=== PATIENT | male | born 1970 ===

== ENCOUNTER 2018-02-25 22:11 | Emergency (ER) | payer OTHER ==
--- NOTE | 2018-02-25 22:40 | EDPHYS ---
Physician Documentation [facility] Name: Surjit Toledo Age: 47 yrs Sex: Male : 1970 Arrival Date: 02/25/2018 Time: 22:15 Bed 15 Private MD: ED Physician Leonidas Zimmerman HPI: 02/25 22:37 This 47 yrs old Unknown Male presents to ER via Ambulatory with complaints of Ear Pain. rn 22:37 The patient presents with pain. The complaints affect the right ear. Onset: The rn symptoms/episode began/occurred today. Associated signs and symptoms: Pertinent positives: sore throat, Pertinent negatives: fever. Severity of symptoms: At their worst the symptoms were mild in the emergency department the symptoms are unchanged. The patient has not experienced similar symptoms in the past. Reports sore throat for 2 days, + right ear pain and pressure, no fever. No trauma.. Historical: - Allergies: 22:27 PENICILLINS; ak1 - Home Meds: 22:27 None [Active]; ak1 - PMHx: 22:27 None; ak1 - PSHx: 22:27 None; ak1 - Immunization history:: Adult Immunizations unknown. - Social history:: Smoking status: Patient/guardian denies using tobacco. - Ebola Screening: : No symptoms or risks identified at this time. - Family history:: not pertinent. - Hospitalizations: : No recent hospitalization is reported. ROS: 22:37 Constitutional: Negative for fever, chills, and weight loss, ENT: + sore throat and rn right ear pain Exam: 22:37 Constitutional: This is a well developed, well nourished patient who is awake, alert, rn and in no acute distress. ENT: Nares patent. No nasal discharge, no septal abnormalities noted. Right TM with erythema, slight congestion/narrowing of external canal without drainage or painful manipulation. + erythema to posterior pharynx, no stridor or swelling/masses Vital Signs: 22:27 BP 156 / 107; Pulse 74; Resp 18; Temp 97.4(TE); Pulse Ox 97% on R/A; Weight 90.72 kg ak1 (R); Height 5 ft. 5 in. (165.10 cm) (R); Pain 9/10; 22:27 Body Mass Index 33.28 (90.72 kg, 165.10 cm) ak1 MDM: 22:31 Patient medically screened. rn 22:37 Differential diagnosis: otitis media, otitis externa, acute otalgia. Data reviewed: rn vital signs, nurses notes, and as a result, I will discharge patient. Counseling: I had a detailed discussion with the patient and/or guardian regarding: the historical points, exam findings, and any diagnostic results supporting the discharge/admit diagnosis, the need for outpatient follow up, to return to the emergency department if symptoms worsen or persist or if there are any questions or concerns that arise at home. Response to treatment: the patient's symptoms have markedly improved after treatment, and as a result, I will discharge patient. Special discussion: I discussed with the patient/guardian in detail that at this point there is no indication for admission to the hospital. It is understood, however, that if the symptoms persist or worsen the patient needs to return immediately for re-evaluation. Administered Medications: 22:44 Drug: TORadol 30 mg Route: IM; Site: right deltoid; rv 22:51 Follow up: Response: No adverse reaction; Medication administered at discharge. rv 22:44 Drug: AZITHromycin 500 mg Route: PO; rv 22:51 Follow up: Response: No adverse reaction; Medication administered at discharge. rv Disposition: 02/25/18 22:39 Discharged to Home. Impression: Otitis media, unspecified, right ear, Acute upper respiratory infection, unspecified. - Condition is Stable. - Discharge Instructions: Otitis Media, Adult, Upper Respiratory Infection, Adult. - Prescriptions for Ibuprofen 800 mg Oral Tablet - take 1 tablet by ORAL route every 12 hours As needed take with food; 20 tablet. Zithromax Z- Marcelo 250 mg Oral Tablet - take 1 tablet by ORAL route as directed for 5 days Day 1 - take two (2) tablets one time. Day 2, 3, 4 , 5 take one (1) tablet once daily.; 6 tablet. - Medication Reconciliation Form, Thank You Letter, Antibiotic Education, Prescription Opioid Use form. - Follow up: Private Physician; When: As needed; Reason: Recheck today's complaints, Re-evaluation by your physician. - Problem is new. - Symptoms have improved. Signatures: Leonidas Zimmerman MD MD rn Krenek, Amber, RN RN ak1 Kain Bennett RN RN rv Corrections: (The following items were deleted from the chart) 22:54 22:39 02/25/2018 22:39 Discharged to Home. Impression: Otitis media, unspecified, right rv ear; Acute upper respiratory infection, unspecified. Condition is Stable. Forms are Medication Reconciliation Form, Thank You Letter, Antibiotic Education, Prescription Opioid Use. Follow up: Private Physician; When: As needed; Reason: Recheck today's complaints, Re-evaluation by your physician. Problem is new. Symptoms have improved. rn
--- NOTE | 2018-02-25 22:40 | ER ---
Nurse's Notes [facility] Name: Surjit Toledo Age: 47 yrs Sex: Male : 1970 Arrival Date: 02/25/2018 Time: 22:15 Bed 15 Private MD: Diagnosis: Otitis media, unspecified, right ear;Acute upper respiratory infection, unspecified Presentation: 02/25 22:26 Presenting complaint: Patient states: right ear pain X2 hours [employer]. pt c/o throat pain ak1 X2 days. Transition of care: patient was not received from another setting of care. Onset of symptoms was February 25, 2018. Risk Assessment: Do you want to hurt yourself or someone else? Patient reports no desire to harm self or others. Initial Sepsis Screen: Does the patient meet any 2 criteria? No. Patient's initial sepsis screen is negative. Does the patient have a suspected source of infection? No. Patient's initial sepsis screen is negative. Care prior to arrival: None. 22:26 Acuity: ABY 4 ak1 22:26 Method Of Arrival: Ambulatory ak1 Triage Assessment: 22:51 General: Appears in no apparent distress. comfortable, Behavior is calm, cooperative. rv Pain: Complains of pain in right ear. EENT: Reports pain in right ear. Neuro: Level of Consciousness is awake, alert, obeys commands, Oriented to person, place, time, situation. Cardiovascular: Capillary refill < 3 seconds. Respiratory: Airway is patent. GI: No signs and/or symptoms were reported involving the gastrointestinal system. : No signs and/or symptoms were reported regarding the genitourinary system. Derm: Skin is intact. Musculoskeletal: No signs and/or symptoms reported regarding the musculoskeletal system. Historical: - Allergies: 22:27 PENICILLINS; ak1 - Home Meds: 22:27 None [Active]; ak1 - PMHx: 22:27 None; ak1 - PSHx: 22:27 None; ak1 - Immunization history:: Adult Immunizations unknown. - Social history:: Smoking status: Patient/guardian denies using tobacco. - Ebola Screening: : No symptoms or risks identified at this time. - Family history:: not pertinent. - Hospitalizations: : No recent hospitalization is reported. Screenin:28 Abuse screen: Denies threats or abuse. Denies injuries from another. Nutritional ak1 screening: No deficits noted. Tuberculosis screening: No symptoms or risk factors identified. Fall Risk None identified. Vital Signs: 22:27 BP 156 / 107; Pulse 74; Resp 18; Temp 97.4(TE); Pulse Ox 97% on R/A; Weight 90.72 kg ak1 (R); Height 5 ft. 5 in. (165.10 cm) (R); Pain 9/10; 22:27 Body Mass Index 33.28 (90.72 kg, 165.10 cm) ak1 ED Course: 22:15 Patient arrived in ED. es 22:26 Triage completed. ak1 22:27 Arm band placed on Patient placed in an exam room, on a stretcher, Patient notified of ak1 wait time. 22:31 Leonidas Zimmerman MD is Attending Physician. rn 22:53 Patient has correct armband on for positive identification. Bed in low position. Call rv light in reach. 22:53 No provider procedures requiring assistance completed. Patient did not have IV access rv during this emergency room visit. Administered Medications: 22:44 Drug: TORadol 30 mg Route: IM; Site: right deltoid; rv 22:51 Follow up: Response: No adverse reaction; Medication administered at discharge. rv 22:44 Drug: AZITHromycin 500 mg Route: PO; rv 22:51 Follow up: Response: No adverse reaction; Medication administered at discharge. rv Outcome: 22:39 Discharge ordered by . rn 22:53 Discharged to home ambulatory. rv 22:53 Condition: good 22:53 Discharge instructions given to patient, Instructed on discharge instructions, medication usage. 22:54 Patient left the ED. rv Signatures: Cassy Meyers Leonidas Zimmermna MD MD rn Krenek, Amber RN RN ak1 Kain Bennett RN RN rv
[2018-02-25] MEDS ORDERED: AZITHROMYCIN 250 MG TAB ONE (22:43)
[2018-02-25] MEDS ORDERED: KETOROLAC 30 MG/ML INJ ONE (22:43)
== END 2018-02-25 22:54 | disposition home or self-care (01) ==
LOC: ER 22:11
DX: H66.91 Otitis media, unspecified, right ear (principal); J06.9 Acute upper respiratory infection, unspecified; Z88.0 Allergy status to penicillin
CPT/HCPCS: 96372; 99283